=== PATIENT | male | born 1945 | race Caucasian/White ===

== ENCOUNTER 2017-11-05 12:47 | Inpatient (IN) | payer MEDICARE, OTHER ==
[~2017-11-05] VITALS: Ht 182.9 cm; Wt 85.2 kg
[~2017-11-05 12:47] MED LIST: ACET500ER PO; ALBU.083IS IH; ASPI325 PO; ATRO1SO BOTHEYES; CHOL10002 PO; CIPR500 PO; CLOP75 PO; DOXA4 PO; EZET10 PO; FLUT110OIA IH; FURO20 PO; HYDACE10B PO; HYDACE5 PO; HYDCHL12.5; LATA.005SO BOTHEYES; LORA.5 PO; LOSA25; LOSA50 PO; MELA3 PO; NIAC500ER PO; OXYGEN; PANT20 PO; POTA8 PO; POTCHL10ER PO; PRED20 PO; PROP60 PO; PSYL5.85P PO; TIMDOROPSO BOTHEYES; TIOT18 IH
[2017-11-05 13:25] LABS: BASOPHILS ABSOLUTE AUTO 0.02 K/mm3 (0.00-0.23); BASOPHILS PERCENT AUTO 0 % (0-2); EOSINOPHILS ABSOLUTE AUTO 0.02 K/mm3 (0.00-0.68); EOSINOPHILS PERCENT AUTO 0 % (0-6); Hematocrit 41.6 % (37.0-53.0); Hemoglobin 14.4 g/dL (13.5-17.5); IMMATURE GRAN ABSOLUTE AUTO 0.04 K/mm3 (0.00-0.10); IMMATURE GRAN PERCENT AUTO 0 % (0-1); LYMPHOCYTES ABSOLUTE AUTO 0.66 K/mm3 (0.84-5.20); LYMPHOCYTES PERCENT AUTO 6 % (21-46); MONOCYTES ABSOLUTE AUTO 0.74 K/mm3 (0.16-1.47); MONOCYTES PERCENT AUTO 7 % (4-13); Mean Corpuscular HGB 32.1 pg (26.0-34.0); Mean Corpuscular HGB Conc 34.6 g/dL (31.5-36.5); Mean Corpuscular Volume 93 fL (80-100); Mean Platelet Volume 9.3 fL (9.1-12.4); NEUTROPHILS PERCENT AUTO 86 % (41-73); Platelet Count 307 K/mm3 (150-400); RDW Coefficient Variation 13.2 % (11.7-14.2); RDW Standard Deviation 44.9 fL (35.1-46.3); Red Blood Cell Count 4.48 M/mm3 (4.30-5.90); White Blood Cell Count 10.78 K/mm3 (4.00-11.30)
[2017-11-05 13:45] LABS: International Normalized Ratio 1.07; Prothrombin Time Results 11.1 Sec (9.7-11.5)
[2017-11-05 13:56] LABS: Alanine Aminotransfer (ALT/SGP 28 U/L (12-78); Albumin, Blood 3.8 g/dL (3.4-5.0); Albumin/Globulin Ratio 0.8 (0.8-1.8); Alk Phos 43 U/L (50-136); Anion Gap 9 mmol/L (6-16); Aspartate Aminotrans (AST/SGOT 20 U/L (12-37); Bilirubin, Total 0.6 mg/dL (0.1-1.0); Blood Urea Nitrogen 13 mg/dL (8-24); Bun/Creatinine Ratio 11.4 (12.0-20.0); CO2, Blood 25 mmol/L (21-32); Calcium, Blood 9.5 mg/dL (8.5-10.1); Chloride, Blood 98 mmol/L (98-108); Creatinine, Blood 1.14 mg/dL (0.60-1.20); Globulin, Blood 4.7 g/dL (2.2-4.0); Glomerular Filtration Rate >60 (60-); Glucose, Blood 133 mg/dL (70-99); Sodium, Blood 132 mmol/L (136-145); Total Protein, Blood 8.5 g/dL (6.4-8.2)
[2017-11-05] MEDS ORDERED: BISA5EC PO (13:56)
[2017-11-05] MEDS ORDERED: AMLO5 PO (13:56)
[2017-11-05] MEDS ORDERED: CLON.5 PO (13:56)
[2017-11-05] MEDS ORDERED: GABA300 PO (13:57)
[2017-11-05] MEDS ORDERED: Advair Hfa 230-12 GM (13:57)
[2017-11-05] MEDS ORDERED: DULO30 PO (13:57)
[2017-11-05] MEDS ORDERED: MAGOXI400 PO (13:58)
[2017-11-05] MEDS ORDERED: MUPI1NAS (13:58)
[2017-11-05] MEDS ORDERED: OLME20 PO (13:58)
[2017-11-05] MEDS ORDERED: ALBU90OI INH (13:59)
[2017-11-05] MEDS ORDERED: RANI150EL (13:59)
[2017-11-05] MEDS ORDERED: BUDE6HFA INH (14:00)
[2017-11-05] MEDS ORDERED: Desyrel50 MG PO (14:00)
[2017-11-05] MEDS ORDERED: TIMO10T PO (14:00)
[2017-11-05] MEDS ORDERED: Vitamin C100 M1 PO (14:01)
[2017-11-05] MEDS ORDERED: PYRI100 PO (14:01)
[2017-11-05] MEDS ORDERED: Super B Comple150 MG PO (14:01)
[2017-11-05 14:36] LABS: PCO2 Arterial 30.8 mmHg (35-45); PO2 Arterial 58.1 mmHg (80-100)
[2017-11-05 15:12] LABS: Appearance, Urine Clear (Clear); Bilirubin, Urine Neg (Neg); Blood, Urine Neg (Neg); Color, Urine Yellow (P-Yellow); Glucose Qualitative, Urine Neg (Neg); Ketones, Urine 4+ (Neg); Leukocyte Esterase, Urine Neg (Neg); Nitrite, Urine Neg (Neg); Protein, Urine 2+ (Neg); Urobilinogen, Urine NORM (Normal)
[2017-11-05 15:27] LABS: Bacteria Not Seen /hpf; Red Blood Cells, Urine Not Seen /hpf (0-2); Squamous Epithelial Cells Not Seen /hpf (Few); White Blood Cells, Urine Not Seen /hpf (0-5)
[2017-11-07 04:05] LABS: BASOPHILS ABSOLUTE AUTO 0.03 K/mm3 (0.00-0.23); BASOPHILS PERCENT AUTO 0 % (0-2); EOSINOPHILS ABSOLUTE AUTO 0.22 K/mm3 (0.00-0.68); EOSINOPHILS PERCENT AUTO 2 % (0-6); Hematocrit 39.8 % (37.0-53.0); Hemoglobin 13.4 g/dL (13.5-17.5); IMMATURE GRAN ABSOLUTE AUTO 0.04 K/mm3 (0.00-0.10); IMMATURE GRAN PERCENT AUTO 0 % (0-1); LYMPHOCYTES ABSOLUTE AUTO 1.21 K/mm3 (0.84-5.20); LYMPHOCYTES PERCENT AUTO 11 % (21-46); MONOCYTES ABSOLUTE AUTO 1.13 K/mm3 (0.16-1.47); MONOCYTES PERCENT AUTO 11 % (4-13); Mean Corpuscular HGB 31.5 pg (26.0-34.0); Mean Corpuscular HGB Conc 33.7 g/dL (31.5-36.5); Mean Corpuscular Volume 94 fL (80-100); NEUTROPHILS PERCENT AUTO 75 % (41-73); RDW Coefficient Variation 13.2 % (11.7-14.2); RDW Standard Deviation 45.4 fL (35.1-46.3); Red Blood Cell Count 4.25 M/mm3 (4.30-5.90); White Blood Cell Count 10.63 K/mm3 (4.00-11.30)
[2017-11-07 04:09] LABS: Mean Platelet Volume 9.7 fL (9.1-12.4); Platelet Count 263 K/mm3 (150-400)
[2017-11-07 04:18] LABS: Anion Gap 9 mmol/L (6-16); Blood Urea Nitrogen 22 mg/dL (8-24); Bun/Creatinine Ratio 19.1 (12.0-20.0); CO2, Blood 26 mmol/L (21-32); Calcium, Blood 9.1 mg/dL (8.5-10.1); Chloride, Blood 100 mmol/L (98-108); Creatinine, Blood 1.15 mg/dL (0.60-1.20); Glomerular Filtration Rate >60 (60-); Glucose, Blood 102 mg/dL (70-99); Potassium, Blood 3.7 mmol/L (3.5-5.5); Sodium, Blood 135 mmol/L (136-145)
[2017-11-07] MEDS ORDERED: NIFE90ER PO (13:38)
[2017-11-07] MEDS ORDERED: LOSA50 PO (13:39)
[2017-11-07] MEDS ORDERED: METO25 PO (13:39)
== END 2017-11-07 14:24 | disposition home or self-care (01) | DRG 77 ==
LOC: ER 12:47 → ICUW 15:34 → ICUE 15:34
PROVIDERS: Emergency Medicine; Internal Medicine
DX: I67.4 Hypertensive encephalopathy (principal); J96.01 Acute respiratory failure with hypoxia; I16.1 Hypertensive emergency; J98.11 Atelectasis; I10 Essential (primary) hypertension; Z87.891 Personal history of nicotine dependence; I69.998 Other sequelae following unspecified cerebrovascular disease; H54.40 Blindness, one eye, unspecified eye; J44.9 Chronic obstructive pulmonary disease, unspecified; F10.10 Alcohol abuse, uncomplicated; M54.9 Dorsalgia, unspecified; G89.29 Other chronic pain; Z87.442 Personal history of urinary calculi
CPT/HCPCS: 36415; 36600; 51702; 70450; 71046; 80048; 80053; 81001; 82803; 82947; 83605; 84145; 85025; 85610; 87040; 93005; 93010; 94640; 96365; 96366; 96375; 99285; C9113; J0456; J0696; J7050

== ENCOUNTER → 2018-08-13 | Outpatient (CLI) | payer MEDICARE, OTHER ==
[~2018-08-13] MED LIST changes: +ALBU90OI INH; +AMLO5 PO; +Advair Hfa 230-12 GM; +BISA5EC PO; +BUDE6HFA INH; +CLON.5 PO; +DULO30 PO; +Desyrel50 MG PO; +GABA300 PO; +MAGOXI400 PO; +METO25 PO; +MUPI1NAS; +NIFE90ER PO; +OLME20 PO; +PYRI100 PO; +RANI150EL; +Super B Comple150 MG PO; +TIMO10T PO; +Vitamin C100 M1 PO
[2018-08-13 13:33] LABS: BASOPHILS ABSOLUTE AUTO 0.04 K/mm3 (0.00-0.23); BASOPHILS PERCENT AUTO 1 % (0-2); EOSINOPHILS ABSOLUTE AUTO 0.23 K/mm3 (0.00-0.68); EOSINOPHILS PERCENT AUTO 3 % (0-6); Hemoglobin 13.6 g/dL (13.5-17.5); IMMATURE GRAN ABSOLUTE AUTO 0.04 K/mm3 (0.00-0.10); IMMATURE GRAN PERCENT AUTO 1 % (0-1); LYMPHOCYTES PERCENT AUTO 15 % (21-46); MONOCYTES ABSOLUTE AUTO 0.65 K/mm3 (0.16-1.47); MONOCYTES PERCENT AUTO 8 % (4-13); Mean Corpuscular HGB 29.4 pg (26.0-34.0); Mean Corpuscular HGB Conc 33.2 g/dL (31.5-36.5); Mean Corpuscular Volume 89 fL (80-100); Mean Platelet Volume 9.3 fL (9.1-12.4); NEUTROPHILS PERCENT AUTO 74 % (41-73); Platelet Count 278 K/mm3 (150-400); RDW Coefficient Variation 16.7 % (11.7-14.2); RDW Standard Deviation 53.8 fL (35.1-46.3); Red Blood Cell Count 4.63 M/mm3 (4.30-5.90); White Blood Cell Count 8.16 K/mm3 (4.00-11.30)
[2018-08-13 13:48] LABS: Alanine Aminotransfer (ALT/SGP 20 U/L (12-78); Albumin, Blood 4.1 g/dL (3.4-5.0); Albumin/Globulin Ratio 0.9 (0.8-1.8); Alk Phos 44 U/L (40-126); Anion Gap 8 mmol/L (6-16); Aspartate Aminotrans (AST/SGOT 19 U/L (12-37); Bilirubin, Total 0.6 mg/dL (0.1-1.0); Blood Urea Nitrogen 17 mg/dL (8-24); Bun/Creatinine Ratio 11.4 (12.0-20.0); CO2, Blood 29 mmol/L (21-32); Calcium, Blood 9.5 mg/dL (8.5-10.1); Chloride, Blood 98 mmol/L (98-108); Creatinine, Blood 1.49 mg/dL (0.60-1.20); Globulin, Blood 4.5 g/dL (2.2-4.0); Glomerular Filtration Rate 46 (60-); Glucose, Blood 105 mg/dL (70-99); Potassium, Blood 4.5 mmol/L (3.5-5.5); Sodium, Blood 135 mmol/L (136-145); Total Protein, Blood 8.6 g/dL (6.4-8.2)
[2018-08-13 13:49] LABS: Troponin I <0.017 ng/mL (0.000-0.040)
== END | disposition home or self-care (01) ==
LOC: LAB SHORT 13:29 → LAB EV 13:29
PROVIDERS: Physician Assistant
DX: I10 Essential (primary) hypertension (principal)
CPT/HCPCS: 80053; 84484; 85025

== ENCOUNTER 2019-02-03 16:39 | Inpatient (IN) | payer MEDICARE, OTHER ==
[~2019-02-03] VITALS: Ht 182.9 cm; Wt 89.0 kg
[~2019-02-03 16:39] MED LIST changes: +LOSARTAN POTAS100 MG PO; -MELA3 PO; +MELATONIN10 M2 PO; +METO100 PO; -METO25 PO; +NIFE60ER PO; -NIFE90ER PO; +POTA10T PO; -TIMO10T PO
[2019-02-03 18:32] LABS: BASOPHILS ABSOLUTE AUTO 0.03 K/mm3 (0.00-0.23); BASOPHILS PERCENT AUTO 0 % (0-2); EOSINOPHILS ABSOLUTE AUTO 0.03 K/mm3 (0.00-0.68); EOSINOPHILS PERCENT AUTO 0 % (0-6); Hemoglobin 13.4 g/dL (13.5-17.5); IMMATURE GRAN ABSOLUTE AUTO 0.09 K/mm3 (0.00-0.10); IMMATURE GRAN PERCENT AUTO 1 % (0-1); LYMPHOCYTES ABSOLUTE AUTO 0.67 K/mm3 (0.84-5.20); LYMPHOCYTES PERCENT AUTO 4 % (21-46); MONOCYTES ABSOLUTE AUTO 1.27 K/mm3 (0.16-1.47); MONOCYTES PERCENT AUTO 8 % (4-13); Mean Corpuscular HGB 31.5 pg (26.0-34.0); Mean Corpuscular HGB Conc 33.5 g/dL (31.5-36.5); Mean Corpuscular Volume 94 fL (80-100); Mean Platelet Volume 9.6 fL (9.1-12.4); NEUTROPHILS PERCENT AUTO 87 % (41-73); Platelet Count 220 K/mm3 (150-400); RDW Standard Deviation 47.8 fL (35.1-46.3); Red Blood Cell Count 4.25 M/mm3 (4.30-5.90); White Blood Cell Count 16.49 K/mm3 (4.00-11.30)
[2019-02-03 18:59] LABS: Albumin, Blood 3.9 g/dL (3.4-5.0); Albumin/Globulin Ratio 0.9 (0.8-1.8); Bilirubin, Total 0.5 mg/dL (0.1-1.0); Bun/Creatinine Ratio 13.1 (12.0-20.0); Calcium, Blood 9.5 mg/dL (8.5-10.1); Creatinine, Blood 1.37 mg/dL (0.60-1.20); Globulin, Blood 4.3 g/dL (2.2-4.0); Potassium, Blood 3.3 mmol/L (3.5-5.5); Total Protein, Blood 8.2 g/dL (6.4-8.2)
[2019-02-03 19:05] LABS: Source, Urine Clean Catch
[2019-02-03 19:09] LABS: Blood, Urine 5+ (Neg); Glucose Qualitative, Urine Neg (Neg); Ketones, Urine 1+ (Neg); Leukocyte Esterase, Urine 3+ (Neg); Nitrite, Urine Pos (Neg); Protein, Urine 2+ (Neg); Urobilinogen, Urine 1+ (Normal)
[2019-02-03 19:35] LABS: Bilirubin, Urine 1+ (Neg)
[2019-02-03 19:36] LABS: Appearance, Urine Cloudy (Clear); Color, Urine Yellow (P-Yellow)
[2019-02-03 19:37] LABS: Squamous Epithelial Cells Mod /hpf (Few); White Blood Cells, Urine 50-100 /hpf (0-5)
[2019-02-03 19:38] LABS: Bacteria Mod /hpf
[2019-02-03 19:44] LABS: Red Blood Cells, Urine TNTC /hpf (0-2)
[2019-02-03] MEDS ORDERED: LATA.005SO BOTHEYES (19:59)
[2019-02-03] MEDS ORDERED: Hytrin2 MG PO (20:06)
[2019-02-03] MEDS ORDERED: Thiamine HCl100 MG PO (20:06)
[2019-02-03] MEDS ORDERED: Hydrocodone-Ap1 EA23 PO (20:08)
[2019-02-03] MEDS ORDERED: HYDCHL25 PO (20:08)
[2019-02-03] MEDS ORDERED: EZET10 PO (20:08)
[2019-02-03] MEDS ORDERED: DICLOFENAC SOD100 G1 TOP (20:08)
[2019-02-03] MEDS ORDERED: FOLI1 PO (23:59)
[2019-02-03] MEDS ORDERED: CLON.1 PO (23:59)
[2019-02-04] MEDS ORDERED: PANT40 PO
[2019-02-04] MEDS ORDERED: Zantac150 MG PO
[2019-02-04] MEDS ORDERED: LOPE2C PO (00:02)
--- NOTE | 2019-02-04 00:46 | NUR ---
PCU ADMIT PT BROUGHT TO PCU RM 08 FROM ER BY [facility] @ APPROX 2320. PT SLID OVER FROM [facility] TO PCU BED. PT A&O X4, [place]. MONITOR SHOWS NSR, HR 80'S. BP ELEVATED, OTHERWISE VSS. PT REPORTS DRINKING "ENOUGH" WHISKEY DAILY IN THE EVENINGS. PT REPORTS LAST DRINK TO BE EVENING OF 02/02. PT NOT DISCLOSING HOW MUCH WHISKEY EACH NIGHT. PT INCONTINENT, WEARING ATTENDS. PT IN BED W/ CALL LIGHT IN REACH. WILL CONTINUE TO MONITOR AND PROVIDE CARE.
[2019-02-04 03:38] LABS: BASOPHILS ABSOLUTE AUTO 0.04 K/mm3 (0.00-0.23); BASOPHILS PERCENT AUTO 0 % (0-2); EOSINOPHILS PERCENT AUTO 0 % (0-6); Hematocrit 36.8 % (37.0-53.0); Hemoglobin 12.5 g/dL (13.5-17.5); IMMATURE GRAN PERCENT AUTO 1 % (0-1); LYMPHOCYTES ABSOLUTE AUTO 0.92 K/mm3 (0.84-5.20); LYMPHOCYTES PERCENT AUTO 5 % (21-46); MONOCYTES PERCENT AUTO 9 % (4-13); Mean Corpuscular HGB 31.8 pg (26.0-34.0); Mean Corpuscular Volume 94 fL (80-100); Mean Platelet Volume 9.6 fL (9.1-12.4); NEUTROPHILS ABSOLUTE AUTO 16.09 K/mm3 (1.96-9.15); NEUTROPHILS PERCENT AUTO 86 % (41-73); Platelet Count 190 K/mm3 (150-400); RDW Coefficient Variation 13.9 % (11.7-14.2); RDW Standard Deviation 47.7 fL (35.1-46.3); Red Blood Cell Count 3.93 M/mm3 (4.30-5.90); White Blood Cell Count 18.75 K/mm3 (4.00-11.30)
[2019-02-04 03:59] LABS: Anion Gap 8 mmol/L (6-16); Blood Urea Nitrogen 15 mg/dL (8-24); Bun/Creatinine Ratio 12.2 (12.0-20.0); CO2, Blood 27 mmol/L (21-32); Calcium, Blood 8.9 mg/dL (8.5-10.1); Chloride, Blood 102 mmol/L (98-108); Creatinine, Blood 1.23 mg/dL (0.60-1.20); Glomerular Filtration Rate >60 (60-); Glucose, Blood 133 mg/dL (70-99); Potassium, Blood 3.4 mmol/L (3.5-5.5); Sodium, Blood 137 mmol/L (136-145)
--- NOTE | 2019-02-04 05:32 | NUR ---
SHIFT SUMMARY PT AK CHIN. A&O TO SELF AND SURROUNDINGS. UNABLE TO ACCURATELY ASSESS PT'S AWARENESS OF DATE/TIME PT STATES EVERY DAY OF WEEK AND STATES "YOU DON'T CARE WHAT DAY OR TIME IT IS WHEN YOU'RE RETIRED." PT ANSWERS MOST Q'S IN JOKING FASHION. PT CIWA 4. BILAT ARMS VISIBILY TREMULOUS. PT STATES BEING COLD. WARM BLANKETS PROVIDED. PT INCONTINENT, WEARING ATTENDS. PT STATES LACK OF CONTROL WHEN NEEDING TO URINATE. PT RESTLESS IN BED, TAKING TELEMETRY STICKERS AND LEADS OFF [facility], BLANKETS AND ATTENDS, RESULTING IN NEED FOR BED CHANGES D/T URINATING ON SELF AND BED. PRN JAMIE CARE/ATTENDS CHANGES PROVIDED. PT IN BED W/ CALL LIGHT IN REACH. BED ALARM ON FOR PT SAFETY. WILL CONTINUE TO MONITOR AND PROVIDE CARE UNTIL REPORT OFF TO DAY SHIFT RN.
--- NOTE | 2019-02-04 12:21 | NUR ---
SHIFT SUMMARY PT ALERT AND ORIENTED. VS STABLE. 02 SATS REMAIN ABOVE 90% ON RA. BP STABLE. HR SB 40-60. PT RECEIVED PD THROUGHOUT NIGHT. POTASSIUM STABLE THIS AM. DR. DE GUZMAN IN WITH ORDERS FOR DISCHARGE. DISCHARGE INSTRUCTIONS PROVIDED. BOTH IVs REMOVED. NO CHANGES IN MEDICATIONS. ALL QUESTIONS ANSWERED. CALLED PT'S TO UPDATE HER. SHE STATES SHE WILL BE IN TO PICK HIM UP SHORTLY. WILL TAKE PT OUT BY WHEELCHAIR.
--- NOTE | 2019-02-04 17:30 | NUR ---
SHIFT SUMMARY PT ALERT AND ORIENTED. VS STABLE. O2 SATS REMAIN ABOVE 90% ON RA. HR NSR. TELEMETRY DISCONTINUED TODAY. PT COMPLAINED OF PAIN IN HIS BACK THAT WAS RELIEVED WITH TYLENOL. STATUS CHANGED TO MEDICAL THIS AM. SMALL AMOUNT OF BRIGHT RED BLOOD NOTED ON ATTENDS AFTER PT USED THE URINAL. DR. YAO NOTIFIED. RENAL ULTRASOUND DONE TODAY. REPORT CALLED TO [facility]ICAL [facility]LO[facility]. PT TAKEN UP BY WHEELCHAIR.
--- NOTE | 2019-02-04 23:34 | NUR ---
02/04/192014 PT C/O BACK PAIN AND WAS INSTRUCTED THAT RN WOULD HAVE TO CALL FOR ANOTHER PAIN MED. WITHIN 10 MINUTES HE RANG ABOUT PAIN MED TWICE. VERY IMPATIENT THIS EVENING. REMINDED HIM TO CALL FOR HELP TO THE BATHROOM. CIWA = 5.
[2019-02-05 04:26] LABS: Hematocrit 36.6 % (37.0-53.0); Hemoglobin 12.6 g/dL (13.5-17.5); Mean Corpuscular HGB 32.2 pg (26.0-34.0); Mean Corpuscular HGB Conc 34.4 g/dL (31.5-36.5); Mean Corpuscular Volume 94 fL (80-100); Platelet Count 177 K/mm3 (150-400); RDW Coefficient Variation 14.2 % (11.7-14.2); RDW Standard Deviation 48.7 fL (35.1-46.3); Red Blood Cell Count 3.91 M/mm3 (4.30-5.90); White Blood Cell Count 13.34 K/mm3 (4.00-11.30)
[2019-02-05 04:45] LABS: Albumin, Blood 3.2 g/dL (3.4-5.0); Anion Gap 10 mmol/L (6-16); Blood Urea Nitrogen 18 mg/dL (8-24); Bun/Creatinine Ratio 16.8 (12.0-20.0); CO2, Blood 25 mmol/L (21-32); Calcium, Blood 9.2 mg/dL (8.5-10.1); Chloride, Blood 104 mmol/L (98-108); Creatinine, Blood 1.07 mg/dL (0.60-1.20); Glomerular Filtration Rate >60 (60-); Glucose, Blood 137 mg/dL (70-99); Potassium, Blood 2.9 mmol/L (3.5-5.5); Sodium, Blood 139 mmol/L (136-145)
--- NOTE | 2019-02-05 06:38 | NUR ---
02/05/19 0635 DINKEY DRIVER PAGED ABOUT LOW K= 2.9 . PT HAD BEEN SLEEPING EARLIER. VITALS STABLE. LESS AGITATED SECOND HALF OF SHIFT.
[2019-02-06 05:03] LABS: BASOPHILS ABSOLUTE AUTO 0.01 K/mm3 (0.00-0.23); BASOPHILS PERCENT AUTO 0 % (0-2); EOSINOPHILS ABSOLUTE AUTO 0.07 K/mm3 (0.00-0.68); EOSINOPHILS PERCENT AUTO 1 % (0-6); Hemoglobin 12.6 g/dL (13.5-17.5); IMMATURE GRAN ABSOLUTE AUTO 0.04 K/mm3 (0.00-0.10); IMMATURE GRAN PERCENT AUTO 0 % (0-1); LYMPHOCYTES ABSOLUTE AUTO 0.92 K/mm3 (0.84-5.20); LYMPHOCYTES PERCENT AUTO 10 % (21-46); MONOCYTES ABSOLUTE AUTO 0.91 K/mm3 (0.16-1.47); MONOCYTES PERCENT AUTO 10 % (4-13); Mean Corpuscular HGB 31.8 pg (26.0-34.0); Mean Corpuscular HGB Conc 34.1 g/dL (31.5-36.5); Mean Corpuscular Volume 93 fL (80-100); Mean Platelet Volume 9.9 fL (9.1-12.4); NEUTROPHILS ABSOLUTE AUTO 7.35 K/mm3 (1.96-9.15); NEUTROPHILS PERCENT AUTO 79 % (41-73); Platelet Count 214 K/mm3 (150-400); RDW Coefficient Variation 13.9 % (11.7-14.2); RDW Standard Deviation 47.9 fL (35.1-46.3); Red Blood Cell Count 3.96 M/mm3 (4.30-5.90)
[2019-02-06 05:31] LABS: Albumin, Blood 3.2 g/dL (3.4-5.0); Anion Gap 11 mmol/L (6-16); Blood Urea Nitrogen 15 mg/dL (8-24); Bun/Creatinine Ratio 15.3 (12.0-20.0); CO2, Blood 24 mmol/L (21-32); Chloride, Blood 105 mmol/L (98-108); Creatinine, Blood 0.98 mg/dL (0.60-1.20); Glomerular Filtration Rate >60 (60-); Glucose, Blood 126 mg/dL (70-99); Phosphorus, Blood 2.9 mg/dL (2.5-4.9); Potassium, Blood 2.9 mmol/L (3.5-5.5); Sodium, Blood 140 mmol/L (136-145)
--- NOTE | 2019-02-06 08:11 | NUR ---
02/06/19 0600 SLEPT WELL. VITALS STABLE. CIWA SCORES REMAIN 6-4-4 THIS SHIFT. UNEVENTFUL NIGHT.
[2019-02-06] MEDS ORDERED: CEFU500T30 PO (10:16)
[2019-02-06] MEDS ORDERED: Culturelle1 CAP PO (10:17)
[2019-02-06] MEDS ORDERED: B-1100 MG PO (10:17)
--- NOTE | 2019-02-06 11:45 | NUR ---
DC ORDERS RECEIVED. PATIENT STATES THAT HE IS READY TO GO HOME. IV DC'D, PATIENT DRESSED HIM SELF. ARRIVED TO PICK HIM UP. THEY DECLINED HOME HEALTH SERVICES AT THIS TIME. RT IN FOR HOME O2 EVAL, PATIENT DOES NOT NEED HOME O2. MONSE BARRIGA TO TRANSPORT PATIENT TO THE EXIT. DC TEACHING COMPLETE, PATIENT STABLE AT TIME OF DISCHARGE.
== END 2019-02-06 11:44 | disposition home health service (06) | DRG 871 ==
LOC: ER 16:39 → ERHOLD 20:39 → PCU 23:25 → MEDS 02-04 17:39 → ENPENDDIS 02-06 10:56 → EDPENDDIS 02-06 10:56 → MEDS 02-06 11:44
PROVIDERS: Internal Medicine; Physician Assistant; ADMIT Family Medicine
DX: A41.51 Sepsis due to Escherichia coli [E. coli] (principal); G92 Toxic encephalopathy; J18.9 Pneumonia, unspecified organism; N17.9 Acute kidney failure, unspecified; N39.0 Urinary tract infection, site not specified; F10.239 Alcohol dependence with withdrawal, unspecified; E87.1 Hypo-osmolality and hyponatremia; R65.20 Severe sepsis without septic shock; E87.6 Hypokalemia; J44.9 Chronic obstructive pulmonary disease, unspecified; R31.9 Hematuria, unspecified; E83.39 Other disorders of phosphorus metabolism; N18.3 Chronic kidney disease, stage 3 (moderate); I12.9 Hypertensive chronic kidney disease with stage 1 through stage 4 chronic kidney disease, or unspecified chronic kidney disease; I73.9 Peripheral vascular disease, unspecified; H40.9 Unspecified glaucoma; H91.90 Unspecified hearing loss, unspecified ear; Z66 Do not resuscitate; Z86.73 Personal history of transient ischemic attack (TIA), and cerebral infarction without residual deficits; Z87.891 Personal history of nicotine dependence; Z79.82 Long term (current) use of aspirin; Z79.899 Other long term (current) drug therapy
CPT/HCPCS: 36415; 70450; 71046; 76770; 80048; 80053; 80069; 81001; 83605; 84145; 85025; 85027; 87040; 87077; 87086; 87186; 94640; 94760; 94761; 96361; 96365; 97110; 97116; 97161; 97165; 97530; 97535; 99284-25; A9270; A9270-GY; J0456; J0696; J1650; J2405; J7030; J7050; J7060

== ENCOUNTER → 2019-02-15 | Outpatient (CLI) | payer MEDICARE, OTHER ==
[~2019-02-15] MED LIST changes: +B-1100 MG PO; +CEFU500T30 PO; +CLON.1 PO; +Culturelle1 CAP PO; +DICLOFENAC SOD100 G1 TOP; +FOLI1 PO; +HYDCHL25 PO; +Hydrocodone-Ap1 EA23 PO; +Hytrin2 MG PO; +LOPE2C PO; +PANT40 PO; +Thiamine HCl100 MG PO; +Zantac150 MG PO
== END | disposition home or self-care (01) ==
LOC: LAB 10:49 → LAB SHORT 10:49
DX: N39.0 Urinary tract infection, site not specified (principal)
CPT/HCPCS: 87086